=== PATIENT | male | born 1945 | race Caucasian/White ===

== ENCOUNTER 2016-12-21 17:43 | Emergency (ER) | payer BC ==
[~2016-12-21] VITALS: Ht 175.3 cm; Wt 82.7 kg
[2016-12-21] MEDS ORDERED: SINGULAIR 110 MG/TAB PO (17:57)
[2016-12-21] MEDS ORDERED: PROAIR HFA0.09 MG/AC IH (17:58)
[2016-12-21] MEDS ORDERED: ADVAIR DISKUS1 DS2 IH (17:59)
[2016-12-21] MEDS ORDERED: FLUTICASON0.05 MG/AC NS (17:59)
[2016-12-21] MEDS ORDERED: NORCO 325 MG-51 TAB PO (19:20)
[2016-12-21] MEDS ORDERED: CEPHALEXIN500 M2 PO (19:20)
[2016-12-21 19:32] VITALS: BP 148/87
== END 2016-12-21 19:35 | disposition home or self-care (01) ==
LOC: ED 17:43
DX: S41.122A Laceration with foreign body of left upper arm, initial encounter (principal); S40.022A Contusion of left upper arm, initial encounter; S00.11XA Contusion of right eyelid and periocular area, initial encounter; W18.09XA Striking against other object with subsequent fall, initial encounter; Y92.007 Garden or yard of unspecified non-institutional (private) residence as the place of occurrence of the external cause; Z23 Encounter for immunization; R42 Dizziness and giddiness; J45.909 Unspecified asthma, uncomplicated
CPT/HCPCS: 90715; A6402; J1885

== ENCOUNTER → 2016-12-24 | Outpatient (CLI) | payer BC ==
[~2016-12-24] VITALS: Ht 175.3 cm; Wt 82.7 kg
[~2016-12-24] MED LIST: ADVAIR DISKUS1 DS2 IH; CEPHALEXIN500 M2 PO; FLUTICASON0.05 MG/AC NS; NORCO 325 MG-51 TAB PO; PROAIR HFA0.09 MG/AC IH; SINGULAIR 110 MG/TAB PO
[2016-12-24 13:04] VITALS: BP 147/87
== END ==
LOC: EDSTATUS 07:18 → AMSURD 13:21
DX: S41.102D Unspecified open wound of left upper arm, subsequent encounter (principal); Z48.00 Encounter for change or removal of nonsurgical wound dressing; X58.XXXD Exposure to other specified factors, subsequent encounter

== ENCOUNTER 2016-12-26 14:13 | Outpatient (RCR) | payer BC ==
[~2016-12-26] VITALS: Ht 175.3 cm; Wt 82.7 kg
--- NOTE | 2016-12-26 20:46 | NUR ---
SKIN FLAP TO WOUND REMAINS INTACT AFTER DRESSING REMOVED BY Lakesha ALEXANDER APRN. FLAP TISSUE IS WARM AND COLOR IS CONSISTENT WITH SURROUNDING SKIN. SMALL SCAB STUCK TO OLD DRESSING AT TOP OF WOUND, BRIGHT RED FRESH BLOOD NOTED. APPLIED XEROFORM DRESSING AND GUAZE 4X4'S OVER WOUND, WRAPPED WITH SAMANTHA WRAP. INSTRUCTED PT TO CHANGE DRESSING AT HOME TOMORROW THEN RETURN TO [facility] FOR RECHECK AND DRESSING CHANGE ON SATURDAY. SENT LEFT OVER SUPPLIES WITH PT.
[2016-12-28 12:59] VITALS: BP 149/60
== END 2016-12-28 21:00 | disposition home or self-care (01) ==
LOC: AMSURD 14:13
DX: Z48.00 Encounter for change or removal of nonsurgical wound dressing (principal); S41.102D Unspecified open wound of left upper arm, subsequent encounter; X58.XXXD Exposure to other specified factors, subsequent encounter

== ENCOUNTER → 2021-03-14 | Outpatient (CLI) | payer MEDICARE ==
[~2021-03-14] VITALS: Ht 175.3 cm; Wt 79.1 kg
[2021-03-14] VITALS (7 sets, daily range): BP systolic 111–132; BP diastolic 72–83
== END ==
LOC: AMSURD 08:00
DX: U07.1 COVID-19 (principal); E66.9 Obesity, unspecified; J45.909 Unspecified asthma, uncomplicated
CPT/HCPCS: M0247; Q0247

== ENCOUNTER 2024-01-20 08:00 | Outpatient (RCR) | payer MEDICARE | END 2024-02-06 | disposition still patient (30) | LOC: PT 08:00 | DX: S86.002D Unspecified injury of left Achilles tendon, subsequent encounter (principal); X58.XXXD Exposure to other specified factors, subsequent encounter ==

== ENCOUNTER → 2024-02-26 | Outpatient (CLI) | payer MEDICARE | LOC: RAD 08:24 | DX: M19.072 Primary osteoarthritis, left ankle and foot (principal) ==

== ENCOUNTER 2024-04-06 08:02 | Outpatient (RCR) | payer MEDICARE | END 2024-04-07 | LOC: PT | DX: S86.002D Unspecified injury of left Achilles tendon, subsequent encounter (principal); X58.XXXD Exposure to other specified factors, subsequent encounter ==